=== PATIENT | female | born 1990 | race Two or more races ===

== ENCOUNTER 2023-12-05 07:15 | Inpatient (IN) | payer MEDICAID ==
[2023-11-30 09:39] LABS: Basophils # (auto) 0 10 ^3/uL (0-0.2); Basophils % (auto) 0.4 % (0.0-2.0); Eosinophils # (auto) 0.1 10 ^3/uL (0-0.8); Eosinophils % (auto) 1.7 % (0.0-7.0); Hematocrit 43.3 % (36.0-46.0); Hemoglobin 14.5 g/dL (12.2-16.2); Lymphocytes # (auto) 2.2 10 ^3/uL (0.4-5.4); Lymphocytes % (auto) 30.1 % (10.0-50.0); Mean Corpuscular Hemoglobin 30.2 pg (28.0-32.0); Mean Corpuscular Hgb Conc. 33.6 g/dL (32.0-36.0); Mean Corpuscular Volume 89.9 fL (80.0-100.0); Monocytes # (auto) 0.4 10 ^3/uL (0-1.3); Monocytes % (auto) 5.7 % (0.0-12.0); Neutrophils # (auto) 4.5 10 ^3/uL (1.6-8.6); Neutrophils % (auto) 62.1 % (37.0-80.0); Nucleated Red Blood Cells % 0.1 %; Red Blood Cells 4.82 10^6/uL (4.0-5.20); Red Cell Distribution Width 12.8 % (11.8-14.3); White Blood Cell 7.2 10^3/uL (4.4-10.8)
[2023-11-30 09:56] LABS: Urine Bacteria FEW /hpf (None Seen); Urine Blood Negative /uL (Negative); Urine Clarity Clear (Clear); Urine Color Colorless (Yellow); Urine Protein, UAD Negative (Negative); Urine Specific Gravity 1.012 (1.001-1.035); Urine Urobilinogen Normal (Negative); Urine WBC 1 /hpf (0 - 5)
[2023-11-30 09:58] LABS: INR 1.02 (0.9-1.15); Partial Thromboplastin Time 27.3 SEC (24.5-34.5); Prothrombin Time 10.7 sec (9.3-11.8)
[2023-11-30 10:11] LABS: Alanine Aminotransferase 53 U/L (7-40); Albumin 4.6 g/dL (3.2-4.8); Alkaline Phosphatase 67 U/L (46-116); Anion Gap 6 (5-15); Aspartate Aminotransferase 32 U/L (13-40); BUN/Creatinine Ratio 7.5 (10.0-20.0); Blood Urea Nitrogen 5 mg/dL (9-23); Calcium 9.6 mg/dL (8.5-10.1); Carbon Dioxide 27 mmol/L (20-30); Chloride 106 mmol/L (98-107); Glucose 88 mg/dL (74-106); Potassium 4.3 mmol/L (3.5-5.1); Sodium 139 mmol/L (136-145)
[2023-11-30 10:12] LABS: Bilirubin, Total 0.9 mg/dL (0.2-1.0); Total Protein 7.3 g/dL (5.7-8.2)
[~2023-12-05] VITALS: Ht 170.2 cm; Wt 88.3 kg
[2023-12-05] MEDS ORDERED: ceFAZolin 2 GM/D5W50ml 50 ML IV ONE (07:27)
[2023-12-05] MEDS ORDERED: NEOSTIGMINE 1 MG/ML INJ (10mg/10ML VIAL) ONE (07:51)
[2023-12-05] MEDS ORDERED: MEPERIDINE HCL (50 MG/ML) 1 ML VIAL ONE (07:51)
[2023-12-05] MEDS ORDERED: SODIUM CHLORIDE LOCK 10 ML ONE (07:51)
[2023-12-05] MEDS ORDERED: DexAMETHasone SOD PHOS 10MG/1ML VIAL INJ ONE (07:51)
[2023-12-05] MEDS ORDERED: KETAMINE 50mg/ML 1ml syringe ONE (07:51)
[2023-12-05] MEDS ORDERED: fentaNYL CITRATE 100 MCG/2 ML VL ONE (07:51)
[2023-12-05] MEDS ORDERED: MIDAZOLAM HCL 2MG/2ML 2ml VIAL (1mg/ml) ONE (07:51)
[2023-12-05] MEDS ORDERED: LIDOCAINE HCL 2% TOP JELLY 5ML TOP ONE (07:51)
[2023-12-05] MEDS ORDERED: LIDOCAINE 1% INJ PF 5ML AMP ONE (07:51)
[2023-12-05] MEDS ORDERED: ONDANSETRON HCL 4 MG/2 ML VIAL ONE (07:52)
[2023-12-05] MEDS ORDERED: ROCURONIUM 10MG/ML 10ML VIAL IV ONE (07:52)
[2023-12-05] MEDS ORDERED: GLYCOPYRROLATE 0.2 MG/ML 1ML VIAL ONE (07:52)
[2023-12-05] MEDS ORDERED: MORPHINE SULFATE INJ 2 MG/ml SYRG IV PRN (09:00)
[2023-12-05] MEDS ORDERED: HYDROmorphone HCL 2 MG/ML VL/or syr IV PRN ×2 (09:00→09:45)
[2023-12-05 09:51] VITALS: O2SAT 100
[2023-12-05] MEDS: HYDROmorphone HCL 2 MG/ML VL/or syr IV PRN (10:23)
[2023-12-05] MEDS: ONDANSETRON HCL 4 MG/2 ML VIAL IV PRN (10:29)
[2023-12-05] MEDS: METOCLOPRAMIDE HCL 5MG/ml INJ 2ml VIAL IV ONE (10:38)
[2023-12-05] MEDS: POTASSIUM CHLORIDE 20 MEQ in D5W/LACTATED RINGERS 1,000 ML IV SCH (11:00)
[2023-12-05] MEDS ORDERED: NITROGLYCERIN 0.4 MG SL TAB SL PRN (12:15)
[2023-12-05] MEDS ORDERED: ePHEDrine SULFATE 50 MG/ML AMP IM ONE (12:15)
[2023-12-05] MEDS: PROMETHAZINE HCL 25 MG RECT SUPP PR ONE (12:44)
[2023-12-05] MEDS ORDERED: ACETAMINOPHEN 325 MG TAB PO PRN (14:00)
[2023-12-05] MEDS ORDERED: ACET-1304 PO (15:59)
[2023-12-05 16:00] VITALS: BP 152/81; PULSE 101; RESP 22; TEMP 98.6; O2SAT 97
[2023-12-05 17:00] VITALS: BP 152/81; PULSE 101; RESP 22; TEMP 98.6; O2SAT 97
[2023-12-05] MEDS: cefTRIAXone 2GM/50ML D5W 50 ML IV SCH (18:03)
[2023-12-05 20:00] VITALS: PULSE 92; RESP 16; O2SAT 98
[2023-12-05] MEDS: MORPHINE SULFATE INJ 2 MG/ml SYRG IV PRN (20:54)
[2023-12-05 20:59] VITALS: BP 114/78; PULSE 92; RESP 16; TEMP 100.1; O2SAT 98
[2023-12-06] VITALS (7 sets, daily range): BP systolic 102–134; BP diastolic 61–85; PULSE 80–93; RESP 12–18; TEMP 98.3–98.9; O2SAT 95–100
[2023-12-06 06:25] LABS: Basophils # (auto) 0 10 ^3/uL (0-0.2); Basophils % (auto) 0.1 % (0.0-2.0); Eosinophils # (auto) 0.1 10 ^3/uL (0-0.8); Eosinophils % (auto) 0.4 % (0.0-7.0); Hematocrit 38.3 % (36.0-46.0); Hemoglobin 12.9 g/dL (12.2-16.2); Lymphocytes % (auto) 16.4 % (10.0-50.0); Mean Corpuscular Hemoglobin 30.2 pg (28.0-32.0); Mean Corpuscular Hgb Conc. 33.6 g/dL (32.0-36.0); Mean Corpuscular Volume 89.8 fL (80.0-100.0); Monocytes # (auto) 0.9 10 ^3/uL (0-1.3); Monocytes % (auto) 6.8 % (0.0-12.0); Neutrophils # (auto) 9.5 10 ^3/uL (1.6-8.6); Neutrophils % (auto) 76.3 % (37.0-80.0); Nucleated Red Blood Cells % 0.1 %; Red Blood Cells 4.27 10^6/uL (4.0-5.20); Red Cell Distribution Width 13.2 % (11.8-14.3); White Blood Cell 12.5 10^3/uL (4.4-10.8)
[2023-12-06 06:47] LABS: Alanine Aminotransferase 54 U/L (7-40); Albumin 3.7 g/dL (3.2-4.8); Alkaline Phosphatase 51 U/L (46-116); Anion Gap 2 (5-15); Aspartate Aminotransferase 24 U/L (13-40); Calcium 8.9 mg/dL (8.7-10.4); Carbon Dioxide 28 mmol/L (20-30); Chloride 107 mmol/L (98-107); Glucose 113 mg/dL (74-106); Lipase 34 U/L (12-53); Potassium 4.2 mmol/L (3.5-5.1); Sodium 137 mmol/L (136-145)
[2023-12-06 06:48] LABS: Bilirubin, Total 1.1 mg/dL (0.2-1.0)
[2023-12-06 07:03] LABS: BUN/Creatinine Ratio 8.3 (10.0-20.0); Blood Urea Nitrogen < 5 mg/dL (9-23)
[2023-12-06] MEDS: PANTOPRAZOLE 40 MG/10 ML VIAL INJ IV SCH (09:17)
[2023-12-06] MEDS: MORPHINE SULFATE INJ 2 MG/ml SYRG IV PRN (09:20)
[2023-12-06] MEDS ORDERED: DOCU-94 PO (10:30)
[2023-12-06] MEDS ORDERED: TRAM50TA2 PO (10:30)
[2023-12-06] MEDS: POTASSIUM CHLORIDE 20 MEQ in D5W/LACTATED RINGERS 1,000 ML IV SCH (10:30)
[2023-12-06] MEDS ORDERED: CEPH500C PO (10:30)
[2023-12-06] MEDS: HYDROcodone-ACET 5/325MG TAB PO PRN (19:53)
[2023-12-07 01:00] VITALS: BP 101/69; PULSE 82; RESP 18; TEMP 97.6; O2SAT 94
[2023-12-07 05:00] VITALS: BP 105/71; PULSE 78; RESP 17; TEMP 97.5; O2SAT 96
[2023-12-07 08:00] VITALS: O2SAT 98
[2023-12-07] MEDS: PROCHLORPERAZINE EDISYLATE 5 MG/ML 2ML VIAL IM ONE (08:17)
[2023-12-07 09:04] LABS: Basophils # (auto) 0 10 ^3/uL (0-0.2); Basophils % (auto) 0.4 % (0.0-2.0); Eosinophils # (auto) 0.1 10 ^3/uL (0-0.8); Eosinophils % (auto) 1.4 % (0.0-7.0); Hematocrit 40.3 % (36.0-46.0); Hemoglobin 13.5 g/dL (12.2-16.2); Lymphocytes # (auto) 1.4 10 ^3/uL (0.4-5.4); Lymphocytes % (auto) 16.5 % (10.0-50.0); Mean Corpuscular Hemoglobin 30.4 pg (28.0-32.0); Mean Corpuscular Hgb Conc. 33.4 g/dL (32.0-36.0); Mean Corpuscular Volume 91.1 fL (80.0-100.0); Monocytes # (auto) 0.5 10 ^3/uL (0-1.3); Monocytes % (auto) 5.8 % (0.0-12.0); Neutrophils # (auto) 6.4 10 ^3/uL (1.6-8.6); Neutrophils % (auto) 75.9 % (37.0-80.0); Red Blood Cells 4.43 10^6/uL (4.0-5.20); Red Cell Distribution Width 13.5 % (11.8-14.3); White Blood Cell 8.4 10^3/uL (4.4-10.8)
[2023-12-07 09:13] VITALS: BP 111/78; PULSE 82; RESP 20; TEMP 97.8; O2SAT 98
[2023-12-07 09:43] VITALS: BP 111/78; PULSE 82; RESP 20; TEMP 97.8; O2SAT 98
[2023-12-07 10:04] VITALS: TEMP 36.6
== END 2023-12-07 11:05 | disposition home or self-care (01) | DRG 263 ==
LOC: SUR 07:15 → OVERFLOW 12:16 → EAST 15:00
PROVIDERS: ADMIT Internal Medicine; ATTEND Internal Medicine
PROC: 0FT44ZZ Resection of Gallbladder, Percutaneous Endoscopic Approach (ICD-10-PCS; principal; 2023-12-05 08:39)
DX: K80.10 Calculus of gallbladder with chronic cholecystitis without obstruction (principal)
CPT/HCPCS: 36415; 80053; 81001; 82247; 83690; 84702; 85025; 85610; 85730; 86850; 86900; 86901; C9113; G0378; J1100; J2250; J2405